=== PATIENT | female | born 1980 | race Caucasian/White ===

== ENCOUNTER 2020-11-01 17:45 | Observation (INO) ==
[2020-11-01 12:41] LABS: Basophils % 0.5 %; Eosinophils % 0.5 %; Hematocrit 37.9 % (35.3-44.9); Hemoglobin 12.9 g/dL (11.5-15.4); Immature Granulocytes % 0.2 % (0-4); Mean Corpuscular Hemoglobin 30.3 pg (28.0-33.3); Mean Platelet Volume 9.7 fL (9.4-12.4); Monocytes # 0.7 K/mcL (0.0-1.3); Neutrophils # 4.8 K/mcL (1.6-8.9); Platelet Count 275 K/mcL (140-400); Red Blood Count 4.26 M/mcL (3.82-4.97); Segmented Neutrophils % 55.8 %; White Blood Count 8.6 K/mcL (4.3-11.1)
[2020-11-01 16:40] LABS: Adenovirus Not Detected (Not Detect); Bordetella Pertussis Not Detected (Not Detect); Chlamydophila pneumoniae Not Detected (Not Detect); Coronavirus 229E Not Detected (Not Detect); Coronavirus HKU1 Not Detected (Not Detect); Coronavirus NL63 Not Detected (Not Detect); Coronavirus OC43 Not Detected (Not Detect); Human Metapneumovirus Not Detected (Not Detect); Human Rhinovirus/Enterovirus Not Detected (Not Detect); Influenza A Subtype 2009 H1 Not Detected (Not Detect); Influenza B Not Detected (Not Detect); Mycoplasma pneumoniae Not Detected (Not Detect); Parainfluenza Virus 1 Not Detected (Not Detect); Parainfluenza Virus 2 Not Detected (Not Detect); Parainfluenza Virus 3 Not Detected (Not Detect); Parainfluenza Virus 4 Not Detected (Not Detect); Respiratory Syncytial Virus Not Detected (Not Detect); SARS-CoV-2 Not Detected (Not Detect)
[~2020-11-01 17:45] MED LIST: *HR* FentaNYL (PF) 100 MCG/2 ML VIAL ONE; *HR* Propofol 200 MG/20 ML VIAL IVP ONE; CeFAZolin 2,000 MG/50 ML BAG IVPB ONE; Famotidine 20 MG/2 ML VIAL IVP PRN; Ketorolac 30 MG/ML VIAL ONE; Lidocaine -MPF 2% 5 ML VIAL ONE; Metoclopramide 10 MG/2 ML VIAL IVP PRN; Naloxone 0.4 MG/ML INJ IVP PRN; Ondansetron 4 MG/2 ML VIAL IVP PRN; Ondansetron 4 MG/2 ML VIAL ONE; Rho Immune Globulin 1,500 UNIT SYRINGE IM ONE; Ringers Solution, Lactated 1,000 ML IVC SCH
[2020-11-01] MEDS ORDERED: Rho Immune Globulin 1,500 UNIT SYRINGE IM ONE (17:51)
[2020-11-01 18:23] VITALS: BP 113/57
== END 2020-11-01 18:32 | disposition home or self-care (01) ==
LOC: 1NENULAB
PROVIDERS: ADMIT Obstetrics & Gynecology; ATTEND Obstetrics & Gynecology